=== PATIENT | male | born 1980 | race Two or more races ===

== ENCOUNTER 2022-04-15 10:40 | Day surgery (SDC) | payer OTHER ==
[2022-04-15] MEDS ORDERED: TYLENOL ARTHRI650 MG PO (14:24)
[2022-04-15] MEDS ORDERED: MIRALAX17 GM PO (14:24)
[2022-04-15] MEDS ORDERED: KETO10TA2 PO (14:24)
[2022-04-15] MEDS ORDERED: TRAMADOL HCL50 MG PO (14:24)
== END 2022-04-15 18:45 | disposition home or self-care (01) ==
LOC: CIR.AMB 10:40
PROVIDERS: ATTEND Surgery
DX: K40.90 Unilateral inguinal hernia, without obstruction or gangrene, not specified as recurrent (principal); Z86.16 Personal history of COVID-19; Z20.822 Contact with and (suspected) exposure to COVID-19
CPT/HCPCS: 49650; C1781